=== PATIENT | female | born 1995 | race Caucasian/White ===

== ENCOUNTER 2018-11-24 23:32 | Emergency (ER) | payer OTHER ==
[2018-11-24 23:38] VITALS: BMI 21.0
--- NOTE | 2018-11-24 23:49 | PDOC ---
History of Present Illness - General Chief Complaint: Nausea/Vomiting Stated Complaint: NAUSEA/VOMITING Time Seen by Provider: 11/24/18 23:49 History Source: Patient Exam Limitations: No Limitations - History of Present Illness Initial Comments: 11/25/18 00:06 This is a 23-year-old female who has a history of cyclic vomiting. Patient last episode was proximally 4 months ago. Patient said the last time she had did not require her to be admitted to the hospital. Patient comes in this evening complaining of altered will episodes of vomiting. Patient is visiting from out of town. Patient denies any abdominal pain fever chills. Patient said she thinks maybe wine set off the cyclic vomiting. Patient comes in with a note from her doctor saying that when this happens she needs IV fluids and Zofran. Allergies: as per nursing notes Past Medical History: none Social history: Lives with family. No smoking. No alcohol. No illicit drugs. Surgical history: None General: No fevers or chills, no weakness, no weight loss HEENT: No change in vision. No sore throat,. No ear pain CardioVascular: no chest discomfort. No shortness of breath Respiratory:No cough, or wheezing. Gastrointestinal: no nausea, vomiting, diarrhea or constipation, No rectal bleeding Genitourinary: No dysuria, hematuria, or frequency Musculoskeletal: No joint or muscle pain or swelling Neurologic: No headache, vertigo, dizziness or loss of consciousness Psychiatric: nor depression Skin: No rashes or easy bruising Endocrine: no increased thirst or abnormal weight change Allergic: no skin or latex allergy All other systems reviewed and normal GENERAL: The patient is awake, alert, and fully oriented, in no acute distress. HEAD: Normal with no signs of trauma. EYES: Pupils equal, round and reactive to light, extraocular movements intact, sclera anicteric, conjunctiva clear. Abd: The abdomen is soft and nontender to palpation EXTREMITIES:atraumatic, Normal range of motion, no edema. NEUROLOGICAL: Normal speech, normal gait. PSYCH: Normal mood, normal affect. SKIN: Warm, Dry, normal turgor, no rashes or lesions noted. Past History - Past Medical History Allergies/Adverse Reactions: Allergies Allergy/AdvReac Type Severity Reaction Status Date / Time sulfamethoxazole Allergy Verified 11/24/18 23:33 [From Bactrim] trimethoprim [From Bactrim] Allergy Verified 11/24/18 23:33 Home Medications: Ambulatory Orders Amitriptyline HCl [Elavil -] 100 mg PO DAILY 11/24/18 Metoclopramide HCl [Reglan] 10 mg PO TID PRN #12 tablet 11/25/18 Ondansetron [Zofran *Odt*] 8 mg SL TID #12 od.tablet 11/25/18 COPD: No GI Disorders: Yes (CYCLIC VOMITING) Psychiatric Problems: Yes - Suicide/Smoking/Psychosocial Hx Smoking History: Never smoked *Physical Exam - Vital Signs Last Vital Signs Temp Pulse Resp BP Pulse Ox 98.3 F 70 16 154/90 100 11/24/18 23:34 11/24/18 23:34 11/24/18 23:34 11/24/18 23:34 11/24/18 23:34 ED Treatment Course - LABORATORY CBC & Chemistry Diagram: 11/25/18 00:10 11/25/18 00:10 *DC/Admit/Observation/Transfer Diagnosis at time of Disposition: Nausea & vomiting Qualifiers: Vomiting type: cyclical vomiting Vomiting Intractability: non-intractable Qualified Code(s): G43.A0 - Cyclical vomiting, not intractable - Discharge Dispostion Disposition: HOME Condition at time of disposition: Stable Decision to Admit order: No - Prescriptions Prescriptions: Metoclopramide HCl [Reglan] 10 mg PO TID PRN #12 tablet PRN Reason: Nausea Ondansetron [Zofran *Odt*] 8 mg SL TID #12 od.tablet - Referrals - Patient Instructions Additional Instructions: I sent to prescription to your pharmacy that you can use for vomiting may be. The first one is for Zofran U can take it as often as 3 times a day The other one is for Reglan to take as often as 3 times a day also if needed alternate the Zofran with the Reglan if needed. Return to the emergency department immediately with ANY new, persistent or worsening symptoms. Continue any medications as previously prescribed by your physician. You should follow up with your primary doctor as soon as possible regarding today's emergency department visit. . Please make sure your doctor reviews the results of your emergency evaluation. Thank you for coming to the Emergency Department today for your care. It was a pleasure to see you today. Please note that your evaluation is INCOMPLETE until you follow-up with your doctor. - Post Discharge Activity
[2018-11-24] MEDS ORDERED: SODIUM CHLORIDE 1,000 ML IV ONE ×2 (23:54→23:56)
[2018-11-24] MEDS ORDERED: ONDANSETRON 4 MG/2 ML VIAL IVPB ONE (23:56)
[2018-11-24] MEDS ORDERED: ONDANSETRON 4 MG/2 ML VIAL ONE (23:59)
[2018-11-25 00:53] LABS: BASO % 0.1 % (0-2.0); HEMATOCRIT 40.3 % (32.4-45.2); HEMOGLOBIN 13.7 GM/dL (10.7-15.3); LYMPH % 7.6 % (8-40); MCH 32.3 pg (25.7-33.7); MCHC 33.9 g/dl (32.0-36.0); MEAN CELL VOLUME 95.2 fl (80-96); MEAN PLT VOLUME 9.3 fl (7.5-11.1); MONO % 3.2 % (3.8-10.2); NEUT % 89.1 % (42.8-82.8); PLATELET COUNT 334 K/MM3 (134-434); RBC 4.23 M/mm3 (3.60-5.2); RDW 13.3 % (11.6-15.6); WHITE BLOOD COUNT 13.8 K/mm3 (4.0-10.0)
[2018-11-25] MEDS ORDERED: METOCLOPRAMIDE HCL INJECTION 10 MG/2 ML VIAL IVPUSH ONE (01:19)
[2018-11-25] MEDS ORDERED: METOCLOPRAMIDE HCL INJECTION 10 MG/2 ML VIAL ONE (01:25)
[2018-11-25 02:01] LABS: ALBUMIN 4.8 g/dl (3.4-5.0); BILIRUBIN,TOTAL 0.5 mg/dL (0.2-1); CREATININE 0.6 mg/dL (0.55-1.3); TOT PROT 8.2 g/dl (6.4-8.2)
[2018-11-25 06:46] VITALS: BP 109/70; PULSE 90; TEMP 98.7
== END 2018-11-25 06:47 | disposition home or self-care (01) ==
LOC: FER 23:32
PROC: 3E033GC Introduction of Other Therapeutic Substance into Peripheral Vein, Percutaneous Approach (ICD-10-PCS; principal; 2018-11-24)
PROC: 3E0337Z Introduction of Electrolytic and Water Balance Substance into Peripheral Vein, Percutaneous Approach (ICD-10-PCS; 2018-11-24)
DX: G43.A0 Cyclical vomiting, in migraine, not intractable (principal)
CPT/HCPCS: 36415; 80053; 85025; 99283-25; J7030